=== PATIENT | female | born 1985 | race African-American/Black ===

== ENCOUNTER 2018-03-04 06:20 | Inpatient (IN) ==
[2018-03-04 07:05] LABS: Basophils % 0.2 % (0.0-0.8); Eosinophils # 0.1 10*3/uL (0.0-0.87); Eosinophils % 1.9 % (0.00-10.9); Hematocrit 31.7 VOL% (35.7-47.0); Immature Granulocytes % 0.4 %; Immature Granulocytes Absolute 0.02 #; Lymphocytes # 1.6 10*3/uL (1.4-4.0); Mean Corpuscular HGB Conc 34.7 GM/DL (32-36); Mean Corpuscular Hemoglobin 33 PG (27-34); Mean Corpuscular Volume 94.6 FL (87-102); Mean Platelet Volume 10.1 FL (9.6-12.0); Monocytes # 0.5 10*3/uL (0.11-0.8); Monocytes % 9.3 % (1.7-12.7); Neutrophils % 57.2 % (38.7-73.9); Platelet Count 203 T/CUMM (130-400); Red Blood Count 3.35 MC/CUMM (3.8-5.5); Red Cell Distribution Width 13.7 % (9.3-17.3); White Blood Count 5.2 T/CUMM (4-12)
[2018-03-04] MEDS: LACTATED RINGERS 1,000 ML IV SCH ×2 (07:11→21:06)
[2018-03-04] MEDS: AMPICILLIN INJ 2,000 MG in SODIUM CHLORIDE 0.9% 100 ML IV SCH ×2 (13:49→19:30)
[2018-03-04] MEDS ORDERED: BUTORPHANOL 2 MG/ML VIAL IV PRN (17:15)
[2018-03-04] MEDS: ONDANSETRON 4 MG/2 ML VIAL IV PRN ×2 (17:18→19:30)
[2018-03-04] MEDS ORDERED: OXYTOCIN/LR 0 UNIT/0 ML BAG IV ONE (17:32)
[2018-03-04] MEDS ORDERED: CITRIC ACID/SODIUM CITRATE 30 ML UDCUP ONE (17:32)
[2018-03-04] MEDS ORDERED: TERBUTALINE 1 MG/1 ML VIAL SUBCUT ONE (17:32)
[2018-03-04] MEDS ORDERED: CITRIC ACID/SODIUM CITRATE 30 ML UDCUP PO ONE (22:12)
[2018-03-04] MEDS ORDERED: PROMETHAZINE 25 MG/1 ML VIAL IM ONE (22:12)
[2018-03-04] MEDS ORDERED: FAMOTIDINE 20 MG/2 ML VIAL IV ONE (22:12)
[2018-03-04] MEDS ORDERED: diphenhydrAMINE 50 MG/1 ML VIAL IV PRN ×2 (22:12)
[2018-03-04] MEDS ORDERED: ePHEDrine 50 MG/ML AMP IV PRN (22:12)
[2018-03-04] MEDS ORDERED: hydrOXYzine HCL 25 MG/1 ML VIAL IM PRN (22:12)
[2018-03-04] MEDS ORDERED: fentaNYL 2 MCG/ROPIV 0.2% EPID 150 ML EPIDURAL SCH (22:30)
[2018-03-05] MEDS ORDERED: TERBUTALINE 1 MG/1 ML VIAL SUBCUT ONE
[2018-03-05] MEDS: AMPICILLIN INJ 2,000 MG in SODIUM CHLORIDE 0.9% 100 ML IV SCH (02:00)
[2018-03-05 02:17] LABS: Apearance,Urine CLEAR (Clear); Bacteria,Urine Occasional /HPF (Few); Bilirubin,Urine Negative (Negative); Blood, Urine Small mg/dL (Negative); Glucose,Urine (UA) Negative (Negative); Ketones,Urine 20 mg/dL (Negative); Mucus,Urine Occasional /LPF (Occasional); Nitrite,Urine Negative (Negative); Protein,Urine Negative; RBC,Urine 1 /HPF (0-4); Urine Color Yellow (Yellow); Urine Urobilinogen < 2.0 EU/DL (0.2-1.0); WBC,Urine <1 /HPF (0-6)
[2018-03-05] MEDS: LACTATED RINGERS 1,000 ML IV SCH ×2 (04:23→16:38)
[2018-03-05] MEDS ORDERED: ceFAZolin 2,000 MG in PREMIX 1 EACH IV PRN (05:19)
[2018-03-05] MEDS ORDERED: OXYTOCIN/LR 20 UNIT/1,000 ML BAG IV PRN (05:21)
[2018-03-05] MEDS ORDERED: MORPHINE 10 MG/10 ML VIAL ONE ×2 (05:52→08:36)
[2018-03-05 06:38] LABS: Cord Arterial Blood HCO3 18.2 MMOL/L
[2018-03-05 06:39] LABS: Cord Venous Blood HCO3 22.9 MMOL/L; Cord Venous Blood PCO2 52.9 MMHG; Cord Venous Blood PO2 23.1 MMHG
[2018-03-05] MEDS ORDERED: KETOROLAC 60 MG/2 ML VIAL IM ONE ×2 (07:11→08:36)
[2018-03-05] MEDS ORDERED: OXYTOCIN/LR 20 UNIT/1,000 ML BAG IV ONE (07:20)
[2018-03-05] MEDS ORDERED: ACETAMINOPHEN 325 MG TABLET PO PRN (07:20)
[2018-03-05] MEDS ORDERED: ONDANSETRON 4 MG/2 ML VIAL IV PRN (07:20)
[2018-03-05] MEDS ORDERED: RHO(D) IMMUNE GLOBULIN 300 MCG SYRINGE IM ONE (07:20)
[2018-03-05] MEDS ORDERED: ONDANSETRON 4 MG/2 ML VIAL ONE (08:36)
[2018-03-05] MEDS ORDERED: LIDOCAINE MPF 2% /EPI 20 ML VIAL ONE (08:36)
[2018-03-05] MEDS ORDERED: PHENYLEPHRINE 1 MG/10 ML SYRINGE IV ONE (08:37)
[2018-03-05] MEDS: DOCUSATE SODIUM 100 MG CAPSULE PO SCH ×2 (09:03→21:11)
[2018-03-05] MEDS: MULTIVITAMIN (PRENATAL) TABLET PO SCH (09:03)
[2018-03-05 11:14] LABS: Basophils % 0.1 % (0.0-0.8); Hemoglobin 9.2 GM/DL (12.0-16.0); Immature Granulocytes % 0.5 %; Immature Granulocytes Absolute 0.06 #; Lymphocytes # 0.9 10*3/uL (1.4-4.0); Lymphocytes % 7.2 % (21.3-54.2); Mean Corpuscular HGB Conc 35.4 GM/DL (32-36); Mean Corpuscular Hemoglobin 33 PG (27-34); Mean Corpuscular Volume 92.9 FL (87-102); Mean Platelet Volume 10.3 FL (9.6-12.0); Monocytes % 8.1 % (1.7-12.7); Neutrophils # 10.2 10*3/uL (1.4-7.4); Neutrophils % 84.1 % (38.7-73.9); Platelet Count 193 T/CUMM (130-400); Red Cell Distribution Width 13.7 % (9.3-17.3); White Blood Count 12.1 T/CUMM (4-12)
[2018-03-05] MEDS: ceFAZolin 1,000 MG in SYRINGE 1 EACH IV SCH ×2 (14:05→21:12)
[2018-03-05] MEDS ORDERED: MEPERIDINE 50 MG/1 ML VIAL ONE (16:22)
[2018-03-05] MEDS: ONDANSETRON 4 MG/2 ML VIAL IV PRN ×2 (16:25→22:29)
[2018-03-05] MEDS ORDERED: MEPERIDINE 50 MG/1 ML VIAL IV PRN (16:30)
[2018-03-06] MEDS: LACTATED RINGERS 1,000 ML IV SCH (02:00)
[2018-03-06] MEDS: IBUPROFEN 800 MG TABLET PO PRN ×3 (04:03→20:37)
[2018-03-06] MEDS: oxyCODONE/ACETAMINOPHEN 5-325 MG TABLET PO PRN ×3 (04:04→20:39)
[2018-03-06 06:04] LABS: Basophils % 0.1 % (0.0-0.8); Eosinophils % 0.3 % (0.00-10.9); Hematocrit 23.1 VOL% (35.7-47.0); Immature Granulocytes % 0.5 %; Immature Granulocytes Absolute 0.05 #; Lymphocytes # 1.7 10*3/uL (1.4-4.0); Lymphocytes % 15.5 % (21.3-54.2); Mean Corpuscular HGB Conc 34.6 GM/DL (32-36); Mean Corpuscular Hemoglobin 32 PG (27-34); Mean Corpuscular Volume 92.8 FL (87-102); Mean Platelet Volume 10.9 FL (9.6-12.0); Monocytes # 0.9 10*3/uL (0.11-0.8); Monocytes % 8.3 % (1.7-12.7); Neutrophils # 8.2 10*3/uL (1.4-7.4); Neutrophils % 75.3 % (38.7-73.9); Platelet Count 182 T/CUMM (130-400); Red Blood Count 2.49 MC/CUMM (3.8-5.5); Red Cell Distribution Width 14.1 % (9.3-17.3); White Blood Count 10.9 T/CUMM (4-12)
[2018-03-06] MEDS: MAGNESIUM HYDROXIDE SUSP 30 ML UDCUP PO PRN ×2 (10:14→20:42)
[2018-03-06] MEDS: FERROUS SULFATE 325 MG TABLET PO SCH ×2 (10:14→20:37)
[2018-03-06] MEDS: MULTIVITAMIN (PRENATAL) TABLET PO SCH (10:14)
[2018-03-06] MEDS: DOCUSATE SODIUM 100 MG CAPSULE PO SCH ×2 (10:14→20:42)
[2018-03-06] MEDS: SIMETHICONE CHEW 80 MG TABLET PO PRN ×2 (10:15→20:42)
[2018-03-07] MEDS: oxyCODONE/ACETAMINOPHEN 5-325 MG TABLET PO PRN ×4 (02:02→21:19)
[2018-03-07] MEDS: SIMETHICONE CHEW 80 MG TABLET PO PRN ×2 (02:04→09:27)
[2018-03-07] MEDS: IBUPROFEN 800 MG TABLET PO PRN ×2 (06:56→16:56)
[2018-03-07] MEDS: FERROUS SULFATE 325 MG TABLET PO SCH ×2 (09:27→21:16)
[2018-03-07] MEDS: DOCUSATE SODIUM 100 MG CAPSULE PO SCH ×2 (09:27→21:16)
[2018-03-07] MEDS: MAGNESIUM HYDROXIDE SUSP 30 ML UDCUP PO PRN ×2 (09:27→21:16)
[2018-03-07] MEDS: MULTIVITAMIN (PRENATAL) TABLET PO SCH (09:27)
[2018-03-08] MEDS: oxyCODONE/ACETAMINOPHEN 5-325 MG TABLET PO PRN ×2 (03:37→08:39)
[2018-03-08] MEDS: IBUPROFEN 800 MG TABLET PO PRN (03:37)
[2018-03-08 07:27] VITALS: BP 111/71
[2018-03-08] MEDS: MULTIVITAMIN (PRENATAL) TABLET PO SCH (08:26)
[2018-03-08] MEDS: FERROUS SULFATE 325 MG TABLET PO SCH (08:26)
[2018-03-08] MEDS: DOCUSATE SODIUM 100 MG CAPSULE PO SCH (08:26)
== END 2018-03-08 11:20 | disposition home or self-care (01) | DRG 766 ==
LOC: N.LDOUT 06:20 → N.LD 06:22 → N.OB 03-05 10:15
PROVIDERS: ADMIT Obstetrics & Gynecology; ATTEND Obstetrics & Gynecology
PROC: LDCSECT (ICD-10-PCS; 2018-03-05 05:35)